=== PATIENT | male | born 1980 ===

== ENCOUNTER → 2023-03-13 08:37 | Outpatient (BNVA) | payer OTHER, SELFPAY | PROVIDERS: Family Provider Family Medicine; PCP Family Medicine; Visit Provider Family Medicine | DX: E53.8 Deficiency of other specified B group vitamins (principal); E03.9 Hypothyroidism, unspecified; R53.81 Other malaise; R53.83 Other fatigue; Z13.220 Encounter for screening for lipoid disorders; Z13.1 Encounter for screening for diabetes mellitus; M79.601 Pain in right arm; Z51.81 Encounter for therapeutic drug level monitoring; E55.9 Vitamin D deficiency, unspecified | CPT/HCPCS: 80053; 80061; 82306; 82607; 83036; 83540; 84403; 84443; 85025; 86141 ==

== ENCOUNTER 2023-07-02 12:51 | Outpatient (CLI) | payer OTHER, SELFPAY ==
--- NOTE | 2023-07-02 13:11 | XR_ITS ---
WS: [id number] Exam: XR elbow RT 2V [id number] Date/Time of Exam: 07/02/2023 1:16 PM Reason For Exam: Right elbow pain Findings: There are no fractures, soft tissue swelling, or calcifications. The elbow shows normal bony alignme nt. There is no irregularity of the bony architecture. IMPRESSION: Negative RIGHT elbow.
== END 2023-07-02 12:52 | disposition home or self-care (01) ==
PROVIDERS: PCP Family Medicine; Visit Provider Family Medicine
DX: M77.11 Lateral epicondylitis, right elbow (principal); M25.521 Pain in right elbow
CPT/HCPCS: 73070

== ENCOUNTER 2025-07-01 14:03 | Outpatient (CLI) | payer OTHER, SELFPAY ==
--- NOTE | 2025-07-01 14:14 | XR_ITS ---
WS: [id number] Exam: XR elbow LT 2V [id number] Date/Time of Exam: 07/01/2025 2:30 PM Reason For Exam: Left elbow pain DLP: No acute fracture. The joints are preserved. Normal soft tissues. XR/XR elbow LT 2V [id number] IMPRESSION: 1. Negative LEFT elbow.
== END 2025-07-01 14:04 | disposition home or self-care (01) ==
PROVIDERS: PCP Family Medicine; Visit Provider Family Medicine
DX: M25.522 Pain in left elbow (principal)
CPT/HCPCS: 73070